=== PATIENT | male | born 1970 | race Caucasian/White ===

== ENCOUNTER 2020-01-31 10:47 | Outpatient (CLI) | payer BC, SELFPAY ==
--- NOTE | 2020-01-31 13:30 | DI.RAD_ITS ---
EXAM: XR ELBOW RT COMPLETE CLINICAL HISTORY: Medial elbow pain right,CHRONIC, M25.529,G89.29 TECHNIQUE: COMPARISON: No exams were available for comparison FINDINGS: Three views were obtained. There is no evidence of an elbow joint effusion or hemarthrosis. No bony abnormality seen. IMPRESSION:
--- NOTE | 2020-01-31 13:30 | DI.RAD_ITS ---
EXAM: XR CHEST 2V PA LATERAL CLINICAL HISTORY: COPD, FATIGUE, R53.83 TECHNIQUE: COMPARISON: No exams were available for comparison FINDINGS: Heart is not enlarged. There are mild diffuse pulmonary reticular radiodensities, possible fibrotic change. No gross consolidation is identified. No pleural effusion seen. Hilar contour is somewhat prominent bilaterally, this is nonspecific but could represent kathy enlarg ement versus enlargement of central pulmonary vessels. Additional evaluation with chest CT is reques haven to evaluate the possibility of pulmonary arterial hypertension, sarcoidosis, or neoplasm. IMPRESSION:
== END 2020-01-31 11:07 ==
PROVIDERS: PCP Emergency Medicine; Visit Provider Emergency Medicine
DX: M25.521 Pain in right elbow (principal); J44.9 Chronic obstructive pulmonary disease, unspecified; R53.83 Other fatigue; R91.8 Other nonspecific abnormal finding of lung field; G89.29 Other chronic pain
CPT/HCPCS: 71046; 73080

== ENCOUNTER 2020-02-01 01:52 | Outpatient (CLI) | payer BC, SELFPAY ==
[2020-02-01 11:41] LABS: Abs Immature Grans 0.02 k/cumm (0.0-0.09); Absolute Basophil Count 0.03 k/cumm (0.0-0.2); Absolute Eosinophil Count 0.08 k/cumm (0.0-0.7); Absolute Lymphocyte Count 2.83 k/cumm (1.2-3.4); Absolute Monocyte Count 0.67 k/cumm (0.11-0.7); Absolute Neutrophil Count 5.36 k/cumm (1.2-6.7); Basophils % 0.3; Eosinophils % 0.9; HCT 41.4 % (40.0-50.0); Immature Grans % 0.2 %; Lymphocytes % 31.5; Mean Corp. HGB Concentration 33.8 g/dL (32.0-36.0); Mean Corpuscular Hemoglobin 30.2 pg (27.0-33.0); Mean Corpuscular Volume 89.2 fL (80-95); Monocytes % 7.5; Neutrophils % 59.6; Platelet Count 233 x1000/uL (130-400); RBC 4.64 m/cumm (4.50-6.00); RBC Distribution Width 13.8 % (11.8-14.1); White Blood Cell Count 8.99 k/cumm (4.4-10.8)
[2020-02-01 12:24] LABS: ESR 8 mm/hr (0-15)
[2020-02-01 12:32] LABS: ALT 20 U/L (16-63); AST 13 U/L (15-37); Albumin 4.2 g/dL (3.4-5.0); Alkaline Phosphatase 92 U/L (46-116); Anion Gap 7.1 mmol/L (3-11); BUN 15 mg/dL (7-18); Bilirubin, Total 0.3 mg/dL (0.2-1.0); CO2 27.9 mmol/L (21.0-32.0); CREATININE 1.11 mg/dL (0.70-1.30); Calcium 9.3 mg/dL (8.5-10.1); Chloride 102 mmol/L (98-107); Glucose 97 mg/dL (74-106); Potassium 4.3 mmol/L (3.5-5.1); Sodium 137 mmol/L (136-145); TSH 1.58 uIU/mL (0.36-3.74); Total Protein 6.9 g/dL (6.4-8.2)
[2020-02-01 12:34] LABS: C-Reactive Protein < 0.05 mg/dL (0.0-0.3)
== END 2020-02-01 02:12 ==
PROVIDERS: PCP Emergency Medicine; Visit Provider Emergency Medicine
DX: E03.9 Hypothyroidism, unspecified (principal); R53.83 Other fatigue
CPT/HCPCS: 36415; 80053; 85652; 81003; 84443; 85025; 86140

== ENCOUNTER 2020-02-08 02:07 | Outpatient (CLI) | payer BC, SELFPAY ==
--- NOTE | 2020-02-08 06:18 | DI.CT_ITS ---
EXAM: CT CHEST W CLINICAL HISTORY: Abnormal chest x-ray. Fatigue,r93.89,? sarocoidosis, pulmonary arterial TECHNIQUE: Imaging Protocol: Axial computed tomography images with coronal and sagittal reformatted images were created and reviewed CONTRAST MATERIAL: Intravenous: Omnipaque 350 Contrast volume:70 mL. COMPARISON: CR XR CHEST 2V PA LATERAL from 01/31/2020 FINDINGS: Tracheobronchial tree: Patent where visualized. Mediastinum and Lyla: No dominant adenopathy or fluid collection. Pulmonary parenchyma: No consolidation or dominant measurable mass. No architectural distortion. Pleura: No effusion or pneumothorax. Heart: The heart is not dilated. No coronary artery calcifications are seen. No significant pericardi al effusion. Aorta: Thoracic aorta non-dilated. Pulmonary arteries: No significant enlargement. Upper abdomen: Unremarkable. Lymph nodes: Within normal limits. Bones: Mild degenerative changes. IMPRESSION: Normal CT of the thorax. RADIATION DOSE DELIVERED: 508.9mGy.cm Total DLP DATA REPOSITORY: All CT scans at this facility are submitted to the National Radiology Data Registry (NRDR) Dose Index Registry (DIR) with the [employer] (ACR). RADIATION OPTIMIZATION: All CT scans at this facility use at least one of these dose optimization te chniques: automated exposure control; mA and/or kV adjustment per patient size (includes targeted exa ms where dose is matched to clinical indication); or iterative reconstruction.
[2020-02-08] MEDS: Omnipaque 350 MG/ML 100 ML BTL IJ (09:02)
[2020-02-08] MEDS: Normal Saline - Diluent 50 ML VIAL IV (09:07)
== END 2020-02-08 02:27 ==
PROVIDERS: PCP Emergency Medicine; Visit Provider Emergency Medicine
DX: R53.83 Other fatigue (principal); R93.89 Abnormal findings on diagnostic imaging of other specified body structures
CPT/HCPCS: 71260; J3490

== ENCOUNTER 2020-02-08 09:14 | Outpatient (REF) | payer BC, SELFPAY ==
[2020-02-08 10:55] LABS: Bilirubin Negative (Negative); Blood Negative (Negative); Clarity Clear (Clear); Glucose Negative (Negative); Ketones Negative (Negative); Leukocyte Esterase Negative (Negative); Nitrite Negative (Negative); Urobilinogen 0.2 EU/dL (Up TO 0.2); pH 7.5 (5-8)
== END 2020-02-08 09:34 ==
LOC: LBN 09:14
PROVIDERS: PCP Emergency Medicine; Visit Provider Emergency Medicine
DX: R30.0 Dysuria (principal)
CPT/HCPCS: 81003

== ENCOUNTER 2024-02-16 10:42 | Emergency (ER) | payer BC, SELFPAY ==
[2024-02-16 10:44] VITALS: BP 138/78; PULSE 77; RESP 18; TEMP 36.8; O2SAT 99
--- NOTE | 2024-02-16 11:00 | DI.US_ITS ---
Exam(s) US SCROTUM EXAM: US SCROTUM CLINICAL HISTORY: eval left testicle for torsion/hydrocele. TECHNIQUE: Scrotal ultrasound performed using grayscale, color-flow and spectral Doppler analysis. COMPARISON: No exams were available for comparison FINDINGS: RIGHT TESTICLE: 3.9 x 2.6 x 3.2 cm Echogenicity: Normal. Contour: Smooth. Mass: None seen. Microlithiasis: None. Hydrocele: None. Varicocele: None. Hernia: No peristalsing bowel loop identified. Epididymis: Normal. Scrotum: Normal. LEFT TESTICLE: 5.1 x 3.1 x 3.4 cm Echogenicity: Normal. Marked hyperemia consistent with orchitis. Contour: Smooth. Mass: None seen. Microlithiasis: None. Hydrocele: Approximately 24 cc volume hydrocele with debris. Varicocele: Mild venous dilatation. Hernia: No peristalsing bowel loop identified. Epididymis: Enlarged and hyperemic consistent with epididymitis. Scrotum: Scrotal thickening measuring up to 7 millimeters. DOPPLER: Color: Symmetric and uniform, no hyperemia. Duplex: Bilateral testicular arterial waveforms visualized. IMPRESSION: Findings consistent with epididymo-orchitis. Small complicated hydrocele. Findings called to Dr. Panchal of the emergency department.
[2024-02-16] MEDS: Acetaminophen 500 MG TAB 1000 MG PO (11:17)
[2024-02-16 12:15] LABS: Bilirubin Negative (Negative); Blood Moderate (Negative); Clarity Cloudy (Clear); Glucose Negative (Negative); Ketones Trace mg/dL (Negative); Leukocyte Esterase Moderate (Negative); Nitrite Positive (Negative); Specific Gravity 1.025 (1.005-1.025); Urobilinogen 0.2 mg/dL (Up to 0.2); pH 5.5 (5-8)
[2024-02-16 12:33] LABS: C & S Indicated? Yes; WBC >50 HPF (0-5)
[2024-02-16 12:34] LABS: Lactate 1.1 mmol/L (0.6-1.4)
[2024-02-16 12:36] LABS: Abs Immature Grans 0.19 10^3/uL (0.0-0.06); Absolute Monocyte Count 1.81 10^3/uL (0.1-0.8); Basophils % 0.3 %; HCT 40.3 % (40.0-50.0); HGB 13.7 g/dL (13.5-17.5); Immature Grans % 0.7 %; MCH 30.9 pg (27.0-33.0); MCV 91 fL (80-95); MPV 10.7 fL (8.0-11.0); Monocytes % 6.7 %; Neutrophils % 86.3 %; Platelet Count 222 10^3/uL (130-400); RBC 4.44 10^6/uL (4.36-5.78); RDW 13.7 % (11.8-14.1); RDW-SD 46.4 fL
[2024-02-16 12:41] LABS: Absolute Basophil Count 0.08 10^3/uL (0.0-0.2); Absolute Lymphocyte Count 1.62 10^3/uL (1.2-3.4)
[2024-02-16 12:42] LABS: Diff Comment Diff Reviewed; RBC Morphology Normal
[2024-02-16 12:51] LABS: ALT 18 U/L (16-63); AST 10 U/L (15-37); Albumin 3.8 g/dL (3.4-5.0); Alkaline Phosphatase 92 U/L (46-116); BUN 15 mg/dL (7-18); Bilirubin, Total 0.7 mg/dL (0.2-1.0); Calcium 8.9 mg/dL (8.5-10.1); Chloride 102 mmol/L (98-107); Estimated GFR 90.56 (mL/min/1.73m2); Glucose 105 mg/dL (74-106); Potassium 4.2 mmol/L (3.5-5.1); Sodium 137 mmol/L (136-145); Total Protein 7.3 g/dL (6.4-8.2)
--- NOTE | 2024-02-16 13:00 | W.ED.GENAD ---
Discharge Plan Disposition Patient Disposition: Transfer-Acute Inpatient Care Specific Acute Inpt Facility: [facility] Condition: Serious Discharge Details Clinical Impression: Acute epididymo-orchitis, Abscess of epididymis or testis Primary Care Provider: Unknown,Unknown ED Provider: Romeo Panchal Home Meds and New Rx's Prescriptions: No Action ibuprofen 200 MG capsule [address] [facility] General Date/Time Provider Initiated Documentation: 02/16/24 10:44. HPI Narrative: This is a pleasant 54-year-old male with no significant past medical history, no prior testicular problems, who presents today for left testicular pain. Patient states that yesterday he had mild bilateral flank pain, this morning he had chills and rigors. And significant pain in his left testicle. He went to urgent care, it was recommended he come to the ER appropriately so for further assessment. He did take some NSAIDs this morning to help with fever and pain, but no significant improvement with these. He denies any burning with urination. He denies any recent pain with intercourse. Last time he ejaculated was 1 month ago and there was no pain or blood at that time. He denies any trauma to his testicles. No other complaints at this time. He denies any STDs that he is aware of. Of note he was lifting some objects that were slightly heavier yesterday, and thinks this may have initially started his symptoms. Related Data Home Medications Medication Instructions Recorded Confirmed ibuprofen 200 mg capsule 200 mg PO bid prn 03/01/13 02/16/24 Allergies Allergy/AdvReac Type Severity Reaction Status Date / Time No Known Allergies Allergy Verified 02/16/24 10:48 General Stated Complaint: Male Reproductive Problem JOE: 3 Review of Systems All systems reviewed & are unremarkable except as noted in HPI and below Exam Narrative Exam Narrative: 1.Const: Well-nourished, Well-developed, appearing stated age 2.Eyes: PERRL, no conjunctival injection, and symmetrical lids. 3.ENT: Atraumatic external nose and ears. Moist MM. Neck: Symmetric, trachea midline, No thyromegaly. 4.CVS: +S1/S2, No murmurs or gallops. Peripheral pulses 2+ and equal in all extremities. Brisk capillary refill in all extremities. 5.RESP: Unlabored respiratory effort. Clear to auscultation bilaterally. No wheezes rales or rhonchi 6.GI: Soft, Nontender/Nondistended, No hepatosplenomegaly. No guarding or rebound. Genital exam demonstrates notably swollen tender left testicle. No crepitus on palpation. No bruising in that area. Right testicle is unremarkable and nontender. Normal cremasteric on the right, the swelling of the left testicle makes movement challenging. Not able to fully visualize the cremasteric reflex. No palpable hernia, mild tenderness on the inguinal canal. No masses otherwise. 7.MSK: Normocephalic/Atraumatic, Extremities w/o deformity or ttp No cyanosis or clubbing, Normal movement of all extremities 8.Skin: Warm, Dry. No rashes or lesions. 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 Sensation grossly intact, no focal neurologic deficits. 10.Psych: (AAO) x3. Appropriate mood and affect Course Vital Signs Vital signs: Vital Signs Temperature 36.8 C 02/16/24 10:44 Pulse 77 02/16/24 10:44 Respiratory Rate 18 02/16/24 10:44 Blood Pressure 138/78 02/16/24 10:44 Pulse Oximetry 99 02/16/24 10:44 Temperature 36.8 C 02/16/24 10:44 Temperature Source Skin 02/16/24 10:44 Pulse 77 02/16/24 10:44 Respiratory Rate 18 02/16/24 10:44 Respiratory Effort Normal 02/16/24 10:47 Blood Pressure 138/78 02/16/24 10:44 Blood Pressure Position Sitting 02/16/24 10:44 Pulse Oximetry 99 02/16/24 10:44 Oxygen Delivery Method Room Air 02/16/24 10:44 Oxygen Flow Rate 0 02/16/24 10:44 Pain Level 6 02/16/24 10:44 Lab/Test Results Lab/Test Results: 02/16/24 12:03 Urine - Reflex from Ua Urine Culture - Pending Laboratory Tests Range/Units 02/16/24 02/16/24 12:03 12:27 WBC (4.4-10.8) 10^3/uL 27.00 H* RBC (4.36-5.78) 10^6/uL 4.44 Hgb (13.5-17.5) g/dL 13.7 Hct (40.0-50.0) % 40.3 MCV (80-95) fL 91 MCH (27.0-33.0) pg 30.9 MCHC (32.0-36.0) % 34.0 RDW (11.8-14.1) % 13.7 Plt Count (130-400) 10^3/uL 222 MPV (8.0-11.0) fL 10.7 Immature Gran % % 0.7 Neutrophils % % 86.3 Lymphocytes % % 6.0 Monocytes % % 6.7 Eosinophils % % 0.0 Basophils % % 0.3 Nucleated RBC % (0.0-0.3) % 0.0 Absolute Neutrophils (1.2-6.7) 10^3/uL 23.30 H Absolute Lymphocytes (1.2-3.4) 10^3/uL 1.62 Absolute Monocytes (0.1-0.8) 10^3/uL 1.81 H Absolute Eosinophils (0.0-0.7) 10^3/uL 0.00 Absolute Basophils (0.0-0.2) 10^3/uL 0.08 RBC Morphology Normal VBG Lactate (0.6-1.4) mmol/L 1.1 Sodium (136-145) mmol/L 137 Potassium (3.5-5.1) mmol/L 4.2 Chloride (98-107) mmol/L 102 Carbon Dioxide (21.0-32.0) mmol/L 25.0 Anion Gap (3-11) mmol/L 10.0 BUN (7-18) mg/dL 15 Creatinine (0.70-1.30) mg/dL 1.0 Est GFR (CKD-EPI 2020) (mL/min/1.73m2) 90.56 Glucose (74-106) mg/dL 105 Calcium (8.5-10.1) mg/dL 8.9 Total Bilirubin (0.2-1.0) mg/dL 0.7 AST (15-37) U/L 10 L ALT (16-63) U/L 18 Alkaline Phosphatase (46-116) U/L 92 Total Protein (6.4-8.2) g/dL 7.3 Albumin (3.4-5.0) g/dL 3.8 Urine Color (Yellow) Yellow Urine Clarity (Clear) Cloudy Urine pH (5-8) 5.5 Ur Specific [place] (1.005-1.025) 1.025 Urine Protein (Neg-Trace) mg/dL 100 H Urine Ketones (Negative) mg/dL Trace H Urine Blood (Negative) Moderate H Urine Nitrite (Negative) Positive H Urine Bilirubin (Negative) Negative Urine Urobilinogen (Up to 0.2) mg/dL 0.2 Ur Leukocyte Esterase (Negative) Moderate H Urine RBC Not Applicable Urine WBC (0-5) HPF >50 H Ur Epithelial Cells Not Applicable Urine Crystals Not Applicable Urine Bacteria Not Applicable Urine Mucus Not Applicable Ur Culture Indicated? Yes Urine Glucose (Negative) mg/dL Negative Medical Decision Making Abbreviated history: 54-year-old male presents with left-sided testicular pain for the last 12 to 18 hours. Pain began gradually last night, and is worsened throughout the day, he had a fever and rigors this morning. He has been taking Tylenol and Motrin to help control this. He presents today. Exam demonstrates a notably swollen tender left-sided testicle. There is erythema but no crepitus. No bruising, no subcutaneous crepitus. No evidence of foreign years at this stage. Ultrasound was performed and shows evidence of a epididymoorchitis with a complicated hydrocele with septation. Patient's blood work shows a white count of 27, notable left shift. Electrolytes normal, renal function normal, urinalysis shows infection which is likely spilling over. Unfortunately we have neither urology nor beds available here at this time. Contacted urology at [facility], discussed the case with Dr. Salmeron. He recommends Zosyn, gentamicin, and vancomycin. These have been administered. He recommends emergent transfer for surgical drainage. He does not recommend waiting more than 1 to 2 hours maximum. 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 I have extensively reviewed the treatment plan with the patient. I have addressed all patient concerns at this time. I have also discussed the plan with the admitting physician and they agree with the current assessment and plan and have agreed to assume responsibility for the patient. All parties demonstrate verbal understanding and agreement with our assessment and plan at this time. The documentation in this chart was dictated using [employer] dictation software. Please excuse any dictation errors. At time of transfer the patient was reassessed and continued to demonstrate No signs of acute respiratory distress requiring intubation, hemodynamic instability requiring pressor support, or rapidly declining mental status. FINDINGS: RIGHT TESTICLE: 3.9 x 2.6 x 3.2 cm Echogenicity: Normal. Contour: Smooth. Mass: None seen. Microlithiasis: None. Hydrocele: None. Varicocele: None. Hernia: No peristalsing bowel loop identified. Epididymis: Normal. Scrotum: Normal. LEFT TESTICLE: 5.1 x 3.1 x 3.4 cm Echogenicity: Normal. Marked hyperemia consistent with orchitis. Contour: Smooth. Mass: None seen. Microlithiasis: None. Hydrocele: Approximately 24 cc volume hydrocele with debris. Varicocele: Mild venous dilatation. Hernia: No peristalsing bowel loop identified. Epididymis: Enlarged and hyperemic consistent with epididymitis. Scrotum: Scrotal thickening measuring up to 7 millimeters. DOPPLER: Color: Symmetric and uniform, no hyperemia. Duplex: Bilateral testicular arterial waveforms visualized. IMPRESSION: Findings consistent with epididymo-orchitis. Small complicated hydrocele. Findings called to Dr. Panchal of the emergency department. Quality:[facility] Health Related Social Needs: No Data to Display Critical Care Time Critical Care Time Critical Care Time: Yes Total Critical Care Time: 45 Attestation: Upon my evaluation, this patient had a high probability of imminent or life-threatening deterioration, which required my direct attention, intervention, and personal management. I have personally provided 45 minutes of critical care time exclusive of time spent on separately billable procedures. Time includes review of laboratory data, radiology results, discussion with consultants, and monitoring for potential decompensation. Interventions were performed as documented. [facility] All Active Problems Abscess of epididymis or testis (Acute) Acute epididymo-orchitis (Acute) Abnormal chest x-ray (Acute) Elbow pain, chronic (Acute) Fatigue (Acute) Social History Smoking/Tobacco Use Status: Current every day Tobacco Type: cigarettes Smoking risk assessment performed?: Yes Alcohol Intake: current Alcohol Intake frequency: holidays/special occasions only Substance use type: does not use Do you feel safe at home: Yes Do you feel safe in your relationship?: Yes
[2024-02-16] MEDS: PIPERACILLIN/TAZO 4.5 GM in Normal Saline 100 ML IVPB (13:01)
[2024-02-16 13:02] VITALS: BP 133/67; PULSE 74; RESP 18; TEMP 36.6; O2SAT 97
[2024-02-16 13:23] LABS: Procalcitonin 0.2 ng/mL
== END 2024-02-16 13:15 | disposition short-term general hospital (02) ==
PROVIDERS: Emergency Provider Student in an Organized Health Care Education/Training Program
DX: N45.3 Epididymo-orchitis (principal); N45.4 Abscess of epididymis or testis; N43.3 Hydrocele, unspecified
CPT/HCPCS: 36415; 80053; 84145; 87077; 96374; 99285; 76870; 81003; 81015; 83605; 85025; 87086; 87186; J2543